=== PATIENT | female | born 1945 | race Caucasian/White ===

== ENCOUNTER → 2018-05-10 | Outpatient (CLI) | payer MEDICARE, MEDICAID ==
[~2018-05-10] MED LIST: CONRAY-43 43% 50ML VIAL (Q9960) As Ordered ONE
--- NOTE | 2018-05-10 20:36 | REP ---
CHOLANGIOGRAM The procedure was performed under the direct supervision of Dr. Ríos. The images were reviewed with Dr. Ríos. The patient has a history of acute cholecystitis. The patient had a cholecystostomy drainage catheter placed on 01/08/2018 at [facility]. Under fluoroscopic guidance approximately 12 ml of a 50 50 solution of sterile saline and Conray 43 was injected into the cholecystostomy catheter. Images demonstrate a contracted gallbladder containing a gallstone. A small amount of contrast traverses the lumen of the gallbladder. There is a small amount of contrast seen in the cystic duct. The contrast, however, preferentially flows out the tract through the skin. Impression: Images demonstrate a contracted gallbladder containing gallstone. A small amount of contrast traverses the lumen of the gallbladder. There is a small amount of contrast seen in the cystic duct. The contrast, however, preferentially flows out the tract through the skin. 0.3 minutes of fluoroscopy time was utilized for this procedure. Reviewed by MATTIE Shafer 05/10/2018 03:17 P Electronically Signed by Catarino Ríos MD 05/10/2018 08:29 P
== END ==
LOC: M RADPRO 10:29
PROVIDERS: ATTEND Surgery
DX: K82.0 Obstruction of gallbladder (principal)
CPT/HCPCS: 47531; Q9960